=== PATIENT | female | born 1985 | race American Indian/Alaskan Native ===

== ENCOUNTER 2017-04-26 10:15 | Emergency (ER) | payer MEDICAID, OTHER ==
[2017-04-26 10:31] VITALS: O2SAT 100
[2017-04-26] MEDS ORDERED: DiphenhydrAMINE 50 mg/ml Inj IVP STA (11:16)
--- NOTE | 2017-04-26 11:33 | C.PDOC ---
History Of Present Illness 31 y/o female presents to ED with c/o left sided headache and facial pain for 5 days. Patient reports headache worsened yesterday, associated with photophobia, prompting visit. Denies nausea, vomiting, weakness or numbness, chest pain, or SOB. Patient also notes she has had URI symptoms for 5 days. Reports symptoms improve with OTC cold medication. Time Seen by Provider: 04/26/17 10:44 Chief Complaint (Nursing): Dizziness/Lightheaded History Per: Patient History/Exam Limitations: no limitations Onset/Duration Of Symptoms: Days Current Symptoms Are (Timing): Still Present Quality: "Pain" Associated Symptoms: Photophobia. denies: Blurred Vision, Nausea, Vomiting, Extremity Weakness Recent travel outside of the [place]: No Past Medical History Reviewed: Historical Data, Nursing Documentation, Vital Signs Vital Signs: Last Vital Signs Temp 97.9 F 04/26/17 14:18 Pulse 88 04/26/17 14:18 Resp 20 04/26/17 14:18 BP 121/78 04/26/17 14:18 Pulse Ox 100 04/26/17 18:41 - Medical History PMH: Depression Family History: States: Unknown Family Hx - Social History Hx Alcohol Use: No Hx Substance Use: Yes (daily use of marijuana) - Immunization History Hx Tetanus Toxoid Vaccination: No Hx Influenza Vaccination: Yes Hx Pneumococcal Vaccination: No Review Of Systems Except As Marked, All Systems Reviewed And Found Negative. Constitutional: Negative for: Fever, Chills Respiratory: Negative for: Shortness of Breath, Wheezing Gastrointestinal: Negative for: Nausea, Vomiting, Abdominal Pain Skin: Negative for: Rash Neurological: Positive for: Headache. Negative for: Weakness, Numbness Physical Exam - Physical Exam Appears: Non-toxic, No Acute Distress Skin: Normal Color, Warm, Dry Head: Atraumatic, Normacephalic, Tenderness (left frontal and maxillary sinuses) Eye(s): bilateral: Normal Inspection, PERRL, EOMI Ear(s): Bilateral: Normal Nose: Normal Oral Mucosa: Moist Throat: Normal, No Erythema, No Exudate Neck: Normal ROM, Supple Chest: Symmetrical Cardiovascular: Rhythm Regular Respiratory: Normal Breath Sounds, No Rales, No Rhonchi, No Wheezing Gastrointestinal/Abdominal: Soft, No Tenderness, No Guarding, No Rebound Back: Normal Inspection Extremity: Normal ROM, Capillary Refill (< 2 sec. ) Neurological/Psych: Oriented x3, Normal Speech, Normal Cognition ED Course And Treatment - Laboratory Results Result Diagrams: 04/26/17 11:43 04/26/17 11:43 O2 Sat by Pulse Oximetry: 100 (RA) Pulse Ox Interpretation: Normal - CT Scan/US CT Head Other Rad Studies (CT/US): Read By Radiologist, Radiology Report Reviewed CT/US Interpretation: FINDINGS: HEMORRHAGE: No acute intracranial hemorrhage. BRAIN: Rounded low attenuation in the midline of the midbrain, likely artifact given its presence on only 1 image. Nevertheless, if clinical warranted , consider further evaluation with magnetic resonance imaging to exclude neoplasm or ischemic change. No evidence of intracranial mass elsewhere. No atrophy or chronic microvascular ischemic changes. VENTRICLES: Unremarkable. No hydrocephalus. CALVARIUM: Unremarkable. PARANASAL SINUSES: Unremarkable as visualized. No significant inflammatory changes. MASTOID AIR CELLS: Unremarkable as visualized. No inflammatory changes. OTHER FINDINGS: None. IMPRESSION: Rounded low-attenuation in the midline of the midbrain, 1 image only. Likely artifact. Nevertheless consider pursuing with magnetic resonance imaging if clinically warranted. Progress Note: Benadryl, Toradol, Reglan ordered. Labs, CT head ordered. On re- eval, patient resting comfortably, in no acute distress. Advised follow up with PMD/clinic within 1-2 days. Medical Decision Making Medical Decision Making: CT results were discussed with the patient was instructed to follow up. On re-exam, the patient reports improvement of symptoms. Lungs are CTA, heart is RRR, abdomen is soft, non-tender and the patient is tolerating Po well. Ambulatory in the ED with steady gait. Follow up with the medical doctor within 1-2 days. Return if worsened. Disposition - Disposition Referrals: [facility] [Outside] Disposition: HOME/ ROUTINE Disposition Time: 14:19 Condition: GOOD Additional Instructions: Follow up with the medical doctor within 1-2 days. Return if worsened. Prescriptions: Amoxicillin/Clavulanate [Augmentin 875 MG-125 MG] 1 tab PO BID #14 tab Ibuprofen [Motrin] 600 mg PO TID #21 tab Loratadine [Claritin] 10 mg PO DAILY #10 tab Metoclopramide [Reglan] 1 tab PO TID PRN #25 tab PRN Reason: Nausea/Vomiting Instructions: Sinusitis (ED), Acute Headache (DC) Forms: [employer] (Albanian) - Clinical Impression Clinical Impression: Headache, Sinusitis - PA / [employer] / Resident Statement MD/DO has reviewed & agrees with the documentation as recorded. - Scribe Statement The provider has reviewed the documentation as recorded by the Scribe SM All medical record entries made by the Scribe were at my direction and personally dictated by me. I have reviewed the chart and agree that the record accurately reflects my personal performance of the history, physical exam, medical decision making, and the department course for this patient. I have also personally directed, reviewed, and agree with the discharge instructions and disposition.
[2017-04-26] MEDS ORDERED: DiphenhydrAMINE 50 mg/ml Inj ONE (11:49)
[2017-04-26 11:56] LABS: URINE BILIRUBIN NEGATIVE (NEGATIVE); URINE BLOOD NEGATIVE (NEGATIVE); URINE COLOR Colorless (YELLOW); URINE GLUCOSE (UA) NORMAL (Normal); URINE KETONE NEGATIVE (NEGATIVE); URINE LEUKOCYTE ESTERASE NEG Leu/uL (Negative); URINE PROTEIN NEGATIVE (NEGATIVE); URINE UROBILINOGEN NORMAL mg/dL (0.2-1.0)
[2017-04-26 11:58] LABS: BASO % 0.7 % (0.0-2.0); EOS % 0.7 % (0.0-4.0); HEMATOCRIT 37.5 % (34.0-47.0); LYMPH # 1.1 K/uL (1.0-4.3); LYMPH % 19.7 % (20.0-40.0); MEAN CELL VOLUME 89.4 fL (81.0-99.0); MEAN CORPUSCULAR HEMOGLOBIN 30.6 pg (27.0-31.0); MEAN CORPUSCULAR HGB CONC 34.2 g/dL (33.0-37.0); MEAN PLATELET VOLUME 8.8 fL (7.2-11.7); MONO # 0.4 K/uL (0.0-0.8); MONO % 7.3 % (0.0-10.0); NRBC % 0.1 % (0.0-2.0); RED CELL DISTRIBUTION WIDTH 13.4 % (11.5-14.5); WHITE BLOOD COUNT 5.8 K/uL (4.8-10.8)
[2017-04-26 12:21] LABS: ALB/GLOB RATIO 1.5 (1.0-2.1); ALKALINE PHOSPHATASE 59 U/L (38-126); ALT/SGPT 34 U/L (9-52); AST/SGOT 21 U/L (14-36); BILIRUBIN,TOTAL 0.5 mg/dL (0.2-1.3); BLOOD UREA NITROGEN 9 mg/dL (7-17); CALCIUM 8.7 mg/dl (8.6-10.4); CARBON DIOXIDE 24 mmol/L (22-30); CHLORIDE 101 mmol/L (98-107); GFR AFRICAN-AMERICAN > 60; GLUCOSE,RANDOM 92 mg/dL (65-105); POTASSIUM 4.2 mmol/L (3.6-5.2); SODIUM 135 mmol/L (132-148); TOTAL PROTEIN 6.7 g/dL (6.3-8.3)
[2017-04-26 13:00] VITALS: RESP 20
--- NOTE | 2017-04-26 13:07 | CT ---
PROCEDURE: CT HEAD WITHOUT CONTRAST. HISTORY: L sided Headache and facial pain COMPARISON: None available. TECHNIQUE: Axial computed tomography images were obtained through the head/brain without intravenous contrast. Radiation dose: Total exam DLP = 790.33 mGy-cm. This CT exam was performed using one or more of the following dose reduction techniques: Automated exposure control, adjustment of the mA and/or kV according to patient size, and/or use of iterative reconstruction technique. FINDINGS: HEMORRHAGE: No acute intracranial hemorrhage BRAIN: Rounded low attenuation in the midline of the midbrain, likely artifact given its presence on only 1 image. Nevertheless, if clinical warranted, consider further evaluation with magnetic resonance imaging to exclude neoplasm or ischemic change. No evidence of intracranial mass elsewhere. No atrophy or chronic microvascular ischemic changes. VENTRICLES: Unremarkable. No hydrocephalus. CALVARIUM: Unremarkable. PARANASAL SINUSES: Unremarkable as visualized. No significant inflammatory changes. MASTOID AIR CELLS: Unremarkable as visualized. No inflammatory changes. OTHER FINDINGS: None. IMPRESSION: Rounded low-attenuation in the midline of the midbrain, 1 image only. Likely artifact. Nevertheless consider pursuing with magnetic resonance imaging if clinically warranted.
[2017-04-26 14:18] VITALS: BP 121/78; PULSE 88; TEMP 97.9
== END 2017-04-26 14:20 | disposition home or self-care (01) ==
LOC: C.ER 10:15
DX: J32.9 Chronic sinusitis, unspecified (principal); R51 Headache
CPT/HCPCS: 70450; 80053; 81001; 84703; 85025; 96374; 96375; 99285; J1200; J1885; J2765

== ENCOUNTER 2018-02-04 09:39 | Emergency (ER) | payer MEDICAID, OTHER ==
--- NOTE | 2018-02-04 10:30 | C.PDOC ---
History Of Present Illness 32 year old female patient presents to the ER with c/o head pressure and congestion. Patient reports she had sinusitis, which had been relieved, but she still has sinus headache and congestion. Patient states she wants to go to psychiatric for withdrawal from marijuana. Patient notes she needs something to "cope with life due to stress". Patient denies SOB, chest pain, cough, fever and chills. Chief Complaint (Nursing): Headache History Per: Patient History/Exam Limitations: no limitations Onset/Duration Of Symptoms: Days Current Symptoms Are (Timing): Still Present Past Medical History Reviewed: Historical Data, Nursing Documentation, Vital Signs Vital Signs: Last Vital Signs Temp 98.5 F 02/04/18 11:21 Pulse 68 02/04/18 11:21 Resp 14 02/04/18 11:21 BP 124/77 02/04/18 11:21 Pulse Ox 100 02/04/18 11:21 - Medical History PMH: Depression Family History: States: Unknown Family Hx - Social History Hx Alcohol Use: No Hx Substance Use: Yes (daily use of marijuana) - Immunization History Hx Tetanus Toxoid Vaccination: No Hx Influenza Vaccination: Yes Hx Pneumococcal Vaccination: No Review Of Systems Except As Marked, All Systems Reviewed And Found Negative. Constitutional: Negative for: Fever, Chills ENT: Positive for: Nose Congestion Cardiovascular: Negative for: Chest Pain Respiratory: Negative for: Cough, Shortness of Breath Neurological: Positive for: Headache Physical Exam - Physical Exam Appears: Non-toxic, No Acute Distress Skin: Normal Color, Warm, Dry Head: Normacephalic, Tenderness (mild tenderness of face) Eye(s): bilateral: Normal Inspection Ear(s): Bilateral: Normal Oral Mucosa: Moist Teeth: Other (mild upper molar tooth pain) Throat: Normal Neck: Normal ROM, Supple Chest: Symmetrical Cardiovascular: Rhythm Regular Respiratory: Normal Breath Sounds Extremity: Normal ROM (x4) Neurological/Psych: Oriented x3, Normal Speech ED Course And Treatment O2 Sat by Pulse Oximetry: 95 (RA) Pulse Ox Interpretation: Normal Medical Decision Making Medical Decision Making: Impression: sinus headache with congestion Plans: -- ibuprofen -- sudafed Disposition - Disposition Referrals: [facility] [place] [facility] [Outside] [facility] [place] [Outside] Disposition: HOME/ ROUTINE Disposition Time: 11:49 Condition: GOOD Prescriptions: Ibuprofen [Motrin] 600 mg PO Q6 #20 tab Pseudoephedrine HCl [Sudafed] 30 mg PO Q8 #10 tablet Instructions: Sinusitis in Adults Forms: [employer] (Japanese) - Clinical Impression Clinical Impression: Headache, Sinusitis - Scribe Statement The provider has reviewed the documentation as recorded by the Scribe Pati Resendez Provider Attestation: All medical record entries made by the Scribe were at my direction and personally dictated by me. I have reviewed the chart and agree that the record accurately reflects my personal performance of the history, physical exam, medical decision making, and the department course for this patient. I have also personally directed, reviewed, and agree with the discharge instructions and disposition.
[2018-02-04 11:22] VITALS: BP 124/77; PULSE 68; RESP 14; TEMP 98.5
[2018-02-06 16:29] VITALS: O2SAT 95
== END 2018-02-04 11:50 | disposition home or self-care (01) ==
LOC: C.ER 09:39
DX: J32.9 Chronic sinusitis, unspecified (principal); R51 Headache